=== PATIENT | male | born 1950 | race Caucasian/White ===

== ENCOUNTER → 2020-08-27 11:17 | Outpatient (BNVA) | payer OTHER, SELFPAY | PROVIDERS: Family Provider Family Medicine; PCP Family Medicine; Visit Provider Urology | DX: N39.0 Urinary tract infection, site not specified (principal); R33.9 Retention of urine, unspecified; N40.1 Benign prostatic hyperplasia with lower urinary tract symptoms | CPT/HCPCS: 81003 ==

== ENCOUNTER → 2021-07-15 09:24 | Outpatient (BNVA) | payer OTHER, SELFPAY | PROVIDERS: Family Provider Family Medicine; PCP Family Medicine; Visit Provider Surgery | DX: R22.2 Localized swelling, mass and lump, trunk (principal); Z20.822 Contact with and (suspected) exposure to COVID-19 | CPT/HCPCS: 87635 ==

== ENCOUNTER 2021-07-20 07:34 | Day surgery (SDC) | payer OTHER, SELFPAY ==
[2021-07-19 10:43] VITALS: BMI 27.1
[2021-07-20 07:48] VITALS: BP 154/73; PULSE 59; RESP 16; TEMP 36.3; O2SAT 100
--- NOTE | 2021-07-20 08:05 | ANES.PREANE2 ---
Pre-Anesthetic Assessment Pre-Anesthetic Assessment: Height/Weight: Height 1.83 m Weight 90.718 kg Temp Pulse Resp BP Pulse Ox 97.4 F L 59 L 16 154/73 100 07/20/21 07:48 07/20/21 07:48 07/20/21 07:48 07/20/21 07:48 07/20/21 07:48 Preop Diagnosis: Upper back sebaceous cyst Proposed Procedure: Operation Date: 07/20/21 09:00 Proposed Procedures p EXCISION OF UPPER BACK MASS R22.2(Not Applicable) - Joe Spencer MD Familial anesthetic complications: None Was Beta Nahum taken within 24 hours: Yes Was Clonidine taken within 24 hours: N/A Last intake: Intake Last Liquid Date 07/19/21 Last Liquid Time 21:00 Last Solid Date 07/19/21 Last Solid Time 16:00 Social: Social History: No alcohol and No tobacco Exam: Pre-Anes Outpt Exam: alert, oriented x 3, clear to auscultation bilaterally and regular rate & rhythm Airway: Cervical ROM: WNL MP: 2 Dentition: False CV/HEM: CV/HEM: HTN Metabolic: Metabolic: Hyperlipidemia and Thyroid Anesthetic Plan: ASA status: 2 Anesthesia: MAC Risk of > 500 ml blood loss (7ml/kg in children): No PFSH Anesthesia PFSH: Medical History Acute prostatitis Anemia BPH loc w urin obs/LUTS Hyperthyroidism Pyelonephritis Subcutaneous mass of back Surgical History S/P appendectomy S/P thyroidectomy Family History Mother , 76 Cancer leukemia Father , 84 Parkinson disease Other Subcutaneous mass of back Social History Smoking and tobacco status: former smoker Alcohol intake: never Marital status: Data Anesthesia Cardiac Studies: No Data to Display
[2021-07-20] MEDS: acetaminophen 1,000 MG/100 ML PIGGYBACK 400 MG IV (08:15)
[2021-07-20] MEDS: sodium chloride 0.9% 1,000 ML 30 ML IV (08:16)
--- NOTE | 2021-07-20 08:44 | W.PM.OPSUD ---
Surgery/Procedure H&P Update DATE OF PROCEDURE: July 20, 2021 DATE H&P PERFORMED: 07/05/21 H&P UPDATE INFORMATION: I have reviewed H&P completed within last 30 days, I have examined patient prior to procedure and No changes to prior documentation PREOP DIAGNOSIS: Upper back sebaceous cyst PRIMARY INDICATION FOR PROCEDURE: The same PLANNED PROCEDURE: Operation Date: 07/20/21 09:00 Proposed Procedures p EXCISION OF UPPER BACK MASS R22.2(Not Applicable) - Joe Spencer MD
--- NOTE | 2021-07-20 09:14 | PC.NURSE ---
While doing pre op assessment patient stated that she had eaten a chicken leg and cauliflower. Nurse asked patient if she had been on the 10 day liquid protein diet and she stated that she had not and didnt know that she should have been. Dr. Spencer was notified of patient's weight and that she had not lost any and had not been on the diet. Dr. Spencer came and spoke with patient and educated her on the risks and benefits of continuing with surgery today or rescheduling. Patient notified nurse that they were going to reschedule.
[2021-07-20 09:50] VITALS: BP 131/76; PULSE 52; RESP 16; TEMP 36.5; O2SAT 98
--- NOTE | 2021-07-20 09:54 | PM.OP ---
Operative Report Date of procedure: July 20, 2021 Pre-op Diagnosis: Upper back sebaceous cyst Post-op diagnosis: same Procedure Done: 1-Excision of upper back mass inclusive of multiple sebaceous cysts 2-Elevation of superior and Inferior subcutaneous flaps. Specimens removed/disposition: Upper back mass sutures marked superior Surgeon: Joe Spencer Wild Animal Caretaker: instrument and electrical technician Liz and medical student Leidy Wan Circulating nurse Reshma Anesthesia: MAC (garage hand Monae) Estimated blood loss (mL): 5 Condition: stable Disposition: same day Procedure: After identifying the patient holding area, both back johana was marked before the procedure by myself, patient was then taken to the operative suite, was placed in the left lateral position, IV antibiotics were given per protocol,IV propofol was infused by the anesthesia provider, prep and drape of the upper back region was done under the usual sterile technique. Time-out was done verifying the patient's name/date of /planned procedure and destination after the procedure, all were in agreement. Infiltration of lidocaine 2%. I did an elliptical incision on top of the mass including the puncti. I was able to dissect using sharp dissection and the whole cyst/s was excised from the surrounding tissues, the same maneuver was done to the upper back mass and the specimen was sent for permanent pathology.3x6 cm nd depth of 2.5 cm. Thorough irrigation of the cavity was done and hemostasis,elevation of superior and Inferior flaps. followed by deep dermal closure by 3-0 Vicryl, then 3/0 nylon transverse mattress for skin closure Lidocaine 2% was injected at the site of the incisions, followed by pressure dressing. Patient tolerated the procedure well, count of instruments and sponges were completed at the end of the procedure. And then patient was taken to the recovery area in stable condition. I was present for the whole entire procedure
[2021-07-20 09:55] VITALS: BP 136/68; PULSE 56; RESP 17; O2SAT 97
[2021-07-20 10:00] VITALS: BP 130/56; PULSE 55; RESP 16; TEMP 36.4; O2SAT 98
[2021-07-20 10:05] VITALS: BP 136/60; PULSE 52; RESP 16; TEMP 36.6; O2SAT 95
[2021-07-20 10:25] VITALS: BP 132/76; PULSE 52; RESP 16; O2SAT 99
== END 2021-07-20 10:28 | disposition home or self-care (01) ==
PROVIDERS: PCP Family Medicine; Visit Provider Surgery
PROC: (CPT 11406; principal; 2021-07-20 08:50)
DX: L72.3 Sebaceous cyst (principal); I10 Essential (primary) hypertension; E78.5 Hyperlipidemia, unspecified; N40.1 Benign prostatic hyperplasia with lower urinary tract symptoms; N13.8 Other obstructive and reflux uropathy; E03.9 Hypothyroidism, unspecified; Z87.891 Personal history of nicotine dependence
CPT/HCPCS: 11406; 12032; 88304; J2250; J2405; J3010; J7030

== ENCOUNTER → 2021-08-26 10:12 | Outpatient (BNVA) | payer OTHER, SELFPAY | PROVIDERS: PCP Family Medicine; Visit Provider Urology | DX: N40.1 Benign prostatic hyperplasia with lower urinary tract symptoms (principal) | CPT/HCPCS: 81003 ==

== ENCOUNTER → 2022-07-26 10:18 | Outpatient (BNVA) | payer OTHER, SELFPAY | PROVIDERS: PCP Family Medicine; Visit Provider Nurse Practitioner Family | DX: M17.12 Unilateral primary osteoarthritis, left knee (principal) | CPT/HCPCS: 73562; 73560; 73565 ==

== ENCOUNTER → 2023-11-20 08:36 | Outpatient (BNVA) | payer OTHER, SELFPAY | PROVIDERS: PCP Family Medicine; Visit Provider Specialist | DX: Z01.818 Encounter for other preprocedural examination (principal); M17.12 Unilateral primary osteoarthritis, left knee | CPT/HCPCS: 73560; 73565; 99205 ==

== ENCOUNTER 2023-12-25 10:06 | Outpatient (CLI) | payer OTHER, SELFPAY ==
--- NOTE | 2023-12-25 10:30 | CT_ITS ---
WS: [id number] CT LEFT KNEE, NONCONTRAST JOHN TECHNIQUE: Noncontrast CT of the LEFT knee to include the LEFT hip and ankle. CLINICAL INFORMATION: M17.12 - Unilateral primary osteoarthritis, left knee DLP: [address] scans at [facility] use at least one of these dose optimization techniques: automated e xposure control; mA and/or kV adjustment per patient size (includes targeted exams where dose is matc hed to clinical indication); or iterative reconstruction. FINDINGS: Moderate to advanced tricompartment arthritis LEFT knee. Small suprapatellar effusion. Hypertrophic p atella. Slight lateral subluxation of the patella may be positional. Hypertrophic changes along the j oint line. Vascular calcification. Enlarged prostate measuring 5.6 cm. Recommend correlation PSA. LEF T inguinal hernia containing a nonobstructed loop of bowel likely sigmoid colon. Moderate degenerativ e narrowing both hips. IMPRESSION: Images obtained for preoperative purposes. 1. Enlarged prostate measuring 5.6 cm. Recommend correlation PSA. 2. LEFT inguinal hernia containing a nonobstructed loop of bowel likely sigmoid colon.
== END 2023-12-25 10:07 | disposition home or self-care (01) ==
LOC: RAD 10:06
PROVIDERS: PCP Family Medicine; Visit Provider Specialist
DX: M17.12 Unilateral primary osteoarthritis, left knee (principal); M16.0 Bilateral primary osteoarthritis of hip
CPT/HCPCS: 73700

== ENCOUNTER → 2024-01-10 08:50 | Outpatient (BNVA) | payer OTHER, SELFPAY | PROVIDERS: PCP Family Medicine; Visit Provider Family Medicine | DX: Z01.818 Encounter for other preprocedural examination (principal) | CPT/HCPCS: 80053; 81003; 85025 ==

== ENCOUNTER 2024-01-16 10:55 | Observation (INO) | payer OTHER, SELFPAY ==
[2024-01-16] VITALS (15 sets, daily range): BP systolic 103–180; BP diastolic 62–96; PULSE 60–70; RESP 14–19; TEMP 36.1–36.8; O2SAT 95–100; BMI 26.0
[2024-01-16] MEDS: CELEcoxib 200 mg Capsule 400 MG PO (06:28)
[2024-01-16] MEDS: sodium chloride 0.9% 1,000 ML 30 ML IV (06:28)
[2024-01-16] MEDS: gabapentin 300 mg Capsule PO (06:29)
[2024-01-16] MEDS: acetaminophen 1,000 MG/100 ML PIGGYBACK 400 MG IV ×3 (06:35→18:39)
--- NOTE | 2024-01-16 07:02 | P.HPUD_ITS ---
Surgery/Procedure H&P Update DATE OF PROCEDURE: January 16, 2024 DATE H&P PERFORMED: 01/10/24 H&P UPDATE INFORMATION: I have reviewed H&P completed within last 30 days, I have examined patient prior to procedure, No changes to prior documentation and H&P is in [facility] [place] on date indicated PLANNED PROCEDURE: Operation Date: 01/16/24 07:40 Proposed Procedures p Left Jose Robot Total Knee Arthroplasty(Left) - Mellisa Keita MD Related Problem List Diagnoses (1) Primary osteoarthritis of left knee:
--- NOTE | 2024-01-16 07:27 | ANES.PREANE2 ---
Pre-Anesthetic Assessment Height/Weight: Height 1.83 m Weight 87.09 kg Temp Pulse Resp BP Pulse Ox O2 Del Method 97.0 F L 70 18 171/91 99 Room Air 01/16/24 06:15 01/16/24 06:15 01/16/24 06:15 01/16/24 06:15 01/16/24 06:15 01/16/24 06:15 Operation Date: 01/16/24 07:40 Proposed Procedures p Left Jose Robot Total Knee Arthroplasty(Left) - Mellisa Keita MD Familial anesthetic complications: None Was Beta Nahum taken within 24 hours: N/A Was Clonidine taken within 24 hours: N/A Last intake: Intake Last Liquid Date 01/15/24 Last Liquid Time 23:00 Last Solid Date 01/15/24 Last Solid Time 16:00 Social No alcohol and No tobacco Exam alert, oriented x 3, clear to auscultation bilaterally and regular rate & rhythm Airway Mallampati: Class II Dentition: false CV/HEM Hypertension pacemaker may last year for episodes of bradycardia - not pacer dependent Denies CP, SOB, syncope Neuropsych Seizure (complex partial seizures on keppra with no further episodes) Anesthetic Plan ASA status: 3 Anesthesia: Regional (specify below) Other: spinal + adductor Risk of > 500 ml blood loss (7ml/kg in children): No Other Pertinent Information magnet available Medications/Allergies Home Medications Medication Instructions Recorded Confirmed Last Taken Type levothyroxine 137 mcg capsule 137 mcg PO DAILY 08/27/20 01/15/24 01/16/24 History tamsulosin 0.4 mg capsule 0.4 mg PO DAILY #90 caps 08/26/21 01/15/24 01/15/24 Rx levetiracetam 750 mg tablet 750 mg PO BID 01/10/24 01/15/24 01/16/24 History losartan 25 mg tablet 25 mg PO DAILY 01/10/24 01/15/24 01/15/24 History rizatriptan 10 mg disintegrating 10 mg PO Q2H PRN Headache 01/10/24 01/16/24 01/15/24 History tablet rosuvastatin 20 mg tablet 10 mg PO DAILY 01/10/24 01/15/24 01/15/24 History Allergies Allergy/AdvReac Type Severity Reaction Status Date / Time chlorpheniramine Allergy NA Verified 01/16/24 06:21 [From Ornade] cyclobenzaprine Allergy NA Verified 01/16/24 06:21 [From Flexeril] phenylpropanolamine Allergy NA Verified 01/16/24 06:21 [From Ornade] Sulfa (Sulfonamide Allergy rash Verified 01/16/24 06:21 Antibiotics) Current Medications Generic Name Dose Route Start Last Admin Trade Name Freq PRN Reason Stop Dose Admin Sodium Chloride 1,000 mls @ 30 mls/hr 01/16/24 06:15 01/16/24 06:28 Sodium Chloride 0.9% IV 01/17/24 06:14 30 mls/hr .Q24H EDWARD Administration PFSH Anesthesia Medical History Subcutaneous mass of back BPH loc w urin obs/LUTS Acute prostatitis Hyperthyroidism Anemia Pyelonephritis Surgical History S/P appendectomy S/P thyroidectomy Family History Mother , 76 Cancer leukemia Father , 84 Parkinson disease Other Subcutaneous mass of back Social History Alcohol intake: never Substance/Drug Use: never Marital status: Current occupational status: retired Data Anesthesia Cardiac Studies: No Data to Display
--- NOTE | 2024-01-16 07:29 | ANES.PROC ---
Anesthesia Procedures Procedure/Date: 01/16/24 Nerve Block ^: Nerve Block 1: Main Anesthesia: spinal anesthesia block Time Out Performed: Yes Consent: requested by attending/covering physician, from patient, from other, risks and benefits reviewed and patient agrees to proceed Nerve block location: adductor canal (L) Anesthesia monitors applied: pulse oximetry, EKG, BP cuff and oxygen Nerve block position: supine Anesthetic Used: ropivicaine 0.5% (30 ml) and with decadron (4 mg) Ultrasound used to: recognize landmarks and visualize and ID femerol nerve Nerve Stimulator Used?: No Interscalene/Femoral BLK: 4 stimuplex 21 g needle used for position and inplane approach, visualize local anesthetic spread and no vascular puncture identified Injection: neg aspiration of heme Patient Tolerated Procedure: well Complications: none
[2024-01-16] MEDS: ceFAZolin 2,000 MG in sodium chloride 0.9% (plus) 50 ML 100 MG IV ×2 (07:57→17:11)
[2024-01-16] MEDS: tranexamic acid 1,000 mg/10mL SDV 1000 MG IV (08:33)
[2024-01-16] MEDS: BUPivacaine liposome 13.3 mg/mL SDV 10 mL 266 MG INFILTRATI (09:08)
[2024-01-16] MEDS: BUPivacaine 0.5% INJ 30 mL 20 ML XX (09:08)
[2024-01-16] MEDS: vancomycin 1,000 MG SDV 1000 MG XX (09:09)
[2024-01-16] MEDS: ceFAZolin 1,000 mg SDV 2000 MG IRRIGATION (09:10)
--- NOTE | 2024-01-16 10:49 | P.OP_ITS ---
Operative Report Date of procedure: January 16, 2024 Pre-op diagnosis: Left knee primary osteoarthritis Post-op diagnosis: Left knee primary osteoarthritis Post-op findings: Significant denudement of cartilage and findings consistent with osteoarthritis Procedure done: Left total knee arthroplasty with Jose guidance Implants: The [place] total knee system with a size 6 triathlon beaded cruciate retaining femur left, a triathlon titanium tibial component size 6 beaded, a triathlon X3 tibial bearing CS insert size 6 X 9 mm and a beaded triathlon titanium asymmetric patella size 35 x 10 mm Specimens removed/disposition: Bone, disposed of Pathology: None Surgeon: Mellisa Keita MD Welder/Installer: Sania Rashid, nurse practitioner, who services were essential for positioning, retraction, closure, and completion of the surgical procedure Anesthesia: Spinal (With MAC, ASA 3) Estimated blood loss (mL): 150 Tourniquet time (min): 0 (Not utilized) IV fluids (mL): 800 Urine output (mL): 200 Complications: None Findings: Significant degenerative osteoarthritic change Condition: stable Disposition: PACU Brief History: This 73-year-old gentleman presented to the office today complaining of left knee pain. The patient had cortisone injections prior to his first visit with me. He has pain in both knees, but the left is significantly worse than the right. X-ray findings were consistent with severe degenerative osteoarthritic change bilateral knees. After discussion in the office, the patient wished to proceed with total knee arthroplasty. Risks, benefits, and complications were explained in detail. Procedure: The patient was brought to the operating theater, and after undergoing spinal anesthetic, with supplemental adductor canal block, ASA 2, the left lower extremity was prepped with Dura-Prep and draped in usual fashion following placement of a tourniquet high on the leg. The leg was then draped free.? T ourniquet was not elevated during the case.? A surgical pause was performed, and at the time of the surgical pause, we confirmed the site and side of surgery. Additionally, we confirmed the appropriate and timely administration of preoperative antibiotics, Ancef 2 g.? The availability of equipment was confirmed, and the patient's identity was verbalized as well. Following the surgical pause, an incision was made centering over the patella continuing proximally and distally as necessary to allow access to the knee joint. Dissection continued through skin and soft tissues using a scalpel. Hemos tasis was obtained using electrocautery. The skin incision was followed by a median parapatellar arthrotomy. The leg was extended and the patella was able to be displaced laterally.? Appropriate arrays and markers were placed in appropriate position for use of the Jose.? Preoperative planning had been accomplished and was discussed in detail with the [facility] medical sales representative.? Intraoperative mapping of the femur and tibia was accomplished after the arrays were placed.? Internal markers were also placed.? Once we had accomplished the Jose mapping, we began the appropriate resections for placement of the prosthesis.? The plan was for a cruciate retaining right total knee arthroplasty. Once appropriate mapping had been accomplished retraction was established using manual retraction by surgical technicians and also the Jose leg positioner and retractors.? The knee was evaluated.? There was significant osteoarthritic change as well as a slight varus deformity.? Appropriate bone resection was ac complished using the Jose.? The femur was sized to a size 6.? Following femoral cuts, attention was directed to the tibia.? Osteophytes were removed prior to this portion of the procedure.? We had performed a minimal medial release at the beginning of the procedure to allow for placement of the array.? Proximal tibia was evaluated, and it was felt that appropriate size for the tibia was a size 6.? Tray was noted to fit nicely with good coverage.? Rim fit was accomplished with the size 6. A trial reduction was accomplished after osteophytes have been removed as well as the medial and lateral menisci.? We had removed the anterior cruciate ligament at the beginning of the case and preserved the posterior cruciate ligament.? Trial reduction was accomplished with a size 6 femoral cruciate ramin ining component, a size 6 tibial tray and a size 6 CS tibial bearing insert which was 9 mm.? Secondary to the balancing of the knee, we elected to place the 9 mm insert for the actual component. Alignment was felt to be appropriate as well.? Trial components were removed after the femur had been drilled.? Prior to removal of the tibial tray which had been pinned in position with appropriate rotation as determined by the Jose plan, we broached the tibia.? Subsequently, the 4 drill holes were made for the prosthetic component.? All trial components were removed, and the wound was irrigated.? Plans were made for insertion of the prosthetic components.? Prior to this, the patella was manually prepared.? After resection of the articular surface with the jigging system, it was measured and measured a 35 mm patella.? We resected approximately 10 mm of patella.? Patellar height was restored with the patellar component. Once again, the wound was irrigated.? The Tritanium tibia was impacted into position.? The beaded femur was then impacted into position in a cementless fashion. The CS tibial insert was placed prior to placement of the femoral component. The patella was pressed into position with a patellar clamp.? Exparel was injected about the components deep and superficially.? The knee was then copiously irrigated with betadine and saline and suctioned dry. Attention was then directed to closure. Closure was accomplished with 0 Vicryl in the fascial tissues.? The suture line of 0 Vicryl was supplemented with strata fix, #1, with a running stitch from proximal to distal and a second running stitch from distal to proximal.? This was followed by Surgiflo and vancomycin powder.? Following this, a 2-0 Monocryl was used in the subcutaneous tissues, and the skin was closed with 3-0 Strata fix.? Care was taken to assure an excellent subcutaneous as well as skin closure.? A sterile dressing was then placed consisting of Dermabond Prineo, OpSite, ABD, sterile soft roll, and an Oren wrap including over the foot. The patient was returned the Recovery Room in a satisfactory condition. X-rays were obtained and reviewed there.? The patient will be discharged to the floor for postoperative rehabilitation and pain management. Related Problem List Diagnoses (1) Primary osteoarthritis of left knee:
--- NOTE | 2024-01-16 11:00 | XR_ITS ---
WS: [id number] Exam: XR knee LT 1-2V [id number] Date/Time of Exam: 01/16/2024 11:02 AM Reason For Exam: Status post left total knee arthroplasty Comparison 11/20/2023. Total knee arthroplasty is in excellent position. Postoperative changes in the soft tissues. IMPRESSION: 1. Total knee arthroplasty in excellent position.
--- NOTE | 2024-01-16 11:20 | ANE.PACU2 ---
Inpatient post-anesthesia follow up: Airway intact: Yes Vital signs: Temperature 98.0 F Pulse Rate 66 Respiratory Rate 18 Blood Pressure 131/71 Pulse Oximetry 97 Oxygen Delivery Me thod Room Air Oxygen Flow Rate Fraction of Inspir ed Oxygen Hydration adequate: Yes Nausea and vomiting: No Pain level: 1 Mental status: Baseline
[2024-01-16] MEDS: CELEcoxib 200 mg Capsule PO (11:48)
[2024-01-16] MEDS: chlorhexidine gluconate 0.12% Btl 473 mL 30 ML MUCOUS MEM ×3 (14:38→22:22)
[2024-01-16] MEDS: mupirocin oint 22 gm 1 APPLIC NASAL (17:02)
[2024-01-16] MEDS: calcium carbonate 500 mg Chew Tablet 1000 MG PO (17:03)
[2024-01-16] MEDS: levETIRAcetam 500 mg Tablet 750 MG PO (17:03)
[2024-01-16] MEDS: iron polysaccharide complex 150 mg Capsule PO (17:04)
[2024-01-16] MEDS: sennosides-docusate Tablet 2 TAB PO (17:10)
[2024-01-17] VITALS (7 sets, daily range): BP systolic 119–131; BP diastolic 68–72; PULSE 66–71; RESP 12–18; TEMP 36.3–36.7; O2SAT 97–98; BMI 26.0
[2024-01-17] MEDS: ceFAZolin 2,000 MG in sodium chloride 0.9% (plus) 50 ML 100 MG IV ×2 (00:27→07:42)
[2024-01-17] MEDS: CELEcoxib 200 mg Capsule PO ×2 (00:27→11:05)
[2024-01-17] MEDS: acetaminophen 1,000 MG/100 ML PIGGYBACK 400 MG IV (03:51)
[2024-01-17 05:22] LABS: Basophils % 0.2 %; Eosinophils % 0.4 %; Hematocrit 29.1 % (37-53); Lymphocytes # 1.2 10^3/uL (0.8-4.8); Lymphocytes % 11.5 %; Mean Corpuscular HGB Conc 33.7 g/dL (30-55); Mean Corpuscular Hemoglobin 28.3 pg (27-33); Mean Corpuscular Volume 84.1 fl (82-101); Mean Platelet Volume 9.4 fL (7.4-10.4); Monocytes # 1.1 10^3/uL (0.2-0.9); Monocytes % 10.5 %; Neutrophils # 7.83 10^3/uL (1.8-7.7); Nucleated Red Blood Cells % 0 %; Platelet Count 204 10^3/cmm (157-399); Red Blood Count 3.46 10^6/uL (3.85-5.65); Red Cell Distribution Width 14.2 % (12.1-15.1); White Blood Count 10.17 10^3/uL (3.29-11.43)
[2024-01-17 05:41] LABS: Anion Gap 14.3 (5-19); Blood Urea Nitrogen 10 mg/dL (8-23); Calcium 8.3 mg/dL (8.5-10.5); Carbon Dioxide 21 mmol/L (22-29); Chloride 98 mmol/L (98-107); Creatinine Clr Calc Pharmacy 93.2663; Glucose 98 mg/dL (65-115); Osmolality Calculated 267 mOsm/kg (285-295); Potassium 4.3 mmol/L (3.5-5.1); Sodium 129 mmol/L (136-145)
[2024-01-17] MEDS: oxyCODONE 5 mg IR Tab/Cap PO ×2 (07:41→12:21)
[2024-01-17] MEDS: iron polysaccharide complex 150 mg Capsule PO (07:43)
[2024-01-17] MEDS: calcium carbonate 500 mg Chew Tablet 1000 MG PO (07:43)
[2024-01-17] MEDS: cholecalciferol (vitamin D3) 1,000 unit Tablet 1000 UNIT PO (07:44)
[2024-01-17] MEDS: levothyroxine 137 mcg Tablet PO (07:44)
[2024-01-17] MEDS: sennosides-docusate Tablet 2 TAB PO (07:44)
[2024-01-17] MEDS: losartan 50 mg Tablet 25 MG PO (07:44)
[2024-01-17] MEDS: aspirin 325 mg EC Tablet PO (07:45)
[2024-01-17] MEDS: levETIRAcetam 500 mg Tablet 750 MG PO (07:45)
[2024-01-17] MEDS: atorvastatin 40 mg Tablet PO (07:45)
[2024-01-17] MEDS: multivitamin therapeutic Tablet 1 TAB PO (07:46)
[2024-01-17] MEDS: mupirocin oint 22 gm 1 APPLIC NASAL (07:46)
[2024-01-17] MEDS: chlorhexidine gluconate 0.12% Btl 473 mL 30 ML MUCOUS MEM ×2 (07:46→12:21)
[2024-01-17] MEDS: acetaminophen 500 mg Tablet 1000 MG PO (11:05)
--- NOTE | 2024-01-17 13:09 | P.DS_ITS ---
Discharge Providers Date of Admission: 01/16/24 10:55 Date of Discharge: January 17, 2024 Attending Provider at Admission: Mellisa Keita MD Attending Provider at Discharge: Mellisa Keita MD Primary Care Provider: Mango [place] Diagnoses at Discharge Discharge Diagnosis (1) Primary osteoarthritis of left knee: Status: Acute (2) Status post total left knee replacement not using cement: Status: Acute Permanent problem details: Date of procedure: January 16, 2024 Diagnosis: Left knee primary osteoarthritis Procedure done: Left total knee arthroplasty with Jose guidance Implants: The Cherry total knee system with a size 6 triathlon beaded cruciate retaining femur left, a triathlon titanium tibial component size 6 beaded, a triathlon X3 tibial bearing CS insert size 6 X 9 mm and a beaded triathlon titanium asymmetric patella size 35 x 10 mm Reason for Visit Reason for Visit: M17.12 Brief History: This 73-year-old gentleman presented to the office today complaining of left knee pain. The patient had cortisone injections prior to his first visit with me. He has pain in both knees, but the left is significantly worse than the right. X-ray findings were consistent with severe degenerative osteoarthritic change bilateral knees. After discussion in the office, the patient wished to proceed with total knee arthroplasty. Risks, benefits, and complications were explained in detail. Hospital Course Hospital Course Patient was admitted under observation status following same-day admission for left total knee arthroplasty. The patient tolerated the procedure well. He worked with physical therapy the following day, and was doing very well. He was independent with physical therapy. Plans were made for his discharge to home, and the patient and family were in agreement with that. Therefore, he was discharged home to follow-up with me in the office as scheduled. Physical Exam Const: COMMON NORMALS: no acute distress, average body habitus, patient oriented x3 and alert GENERAL APPEARANCE: cooperative and comfortable ORIENTATION/CONSCIOUSNESS: Yes awake HENMT: COMMON NORMALS: normocephalic and atraumatic HEAD & SCALP: normocephalic and atraumatic Eye: GENERAL EYE: appearance normal, both eyes and all related structures Chest: COMMONS NORMALS: normal inspection of the chest Resp: COMMON NORMALS: normal respiratory effort EFFORT & INSPECTION: Yes able to speak in complete sentences and Yes symmetric chest movement Extremity: LEFT LOWER EXTREMITY: Yes knee joint (Large outer dressing removed. Minimal ecchymosis.) Left knee: Yes inspection (No significant swelling.), Yes palpation (Minimal tenderness), Yes ROM (Able to straight leg raise) and Yes neurovascular exam (Intact distally with no evidence of DVT) Neuro: COMMON NORMALS: patient oriented x3 SENSORIUM/ORIENTATION: Yes alert Psych: COMMON NORMALS: mental status grossly normal APPEARANCE: Yes grossly normal ATTITUDE: Yes calm and Yes engaged ATTENTION/CONCENTRATION: Yes attention grossly intact Skin: COMMON NORMALS: no rashes or lesions noted GENERAL SKIN EXAM: no rashes or lesions noted Urinary Catheter Management: Pink: Cath Placed During This Visit: yes, but has since been removed by the nurse Reason for Continuing Indwelling Catheter: Decision to DC Catheter Urinary Catheter Date of Insertion: 01/16/24 Urinary Catheter Time of Insertion: 08:20 Date Urinary Catheter Removed: 01/17/24 Time Urinary Catheter Discontinued: 05:55 Discharge Data Studies Completed and Pending Completed Studies During Hospitalization Category Date Time Status XR knee LT 1-2V [id number] Routine Exams 01/16/24 11:00 Completed Laboratory Results WBC 10.17 10^3/uL (3.29-11.43) 01/17/24 05:14 RBC 3.46 10^6/uL (3.85-5.65) L 01/17/24 05:14 Hgb 9.80 g/dL (11.27-16.99) L 01/17/24 05:14 Hct 29.1 % (37-53) L 01/17/24 05:14 MCV 84.1 fl (82-101) 01/17/24 05:14 MCH 28.3 pg (27-33) 01/17/24 05:14 MCHC 33.7 g/dL (30-55) 01/17/24 05:14 RDW 14.2 % (12.1-15.1) 01/17/24 05:14 Plt Count 204 10^3/cmm (157-399) 01/17/24 05:14 MPV 9.4 fL (7.4-10.4) 01/17/24 05:14 Neut % (Auto) 77.0 % 01/17/24 05:14 Lymph % (Auto) 11.5 % 01/17/24 05:14 [place] % (Auto) 10.5 % 01/17/24 05:14 Eos % (Auto) 0.4 % 01/17/24 05:14 Baso % (Auto) 0.2 % 01/17/24 05:14 Neut # (Auto) 7.83 10^3/uL (1.8-7.7) H 01/17/24 05:14 Lymph # (Auto) 1.2 10^3/uL (0.8-4.8) 01/17/24 05:14 [place] # (Auto) 1.1 10^3/uL (0.2-0.9) H 01/17/24 05:14 Eos # (Auto) 0.0 10^3/uL (0.0-0.8) 01/17/24 05:14 Baso # (Auto) 0.0 10^3/uL (0.0-0.1) 01/17/24 05:14 Nucleated RBC % (auto) 0 % 01/17/24 05:14 Nucleated RBCs # 0.0 /100WBC 01/17/24 05:14 Sodium 129 mmol/L (136-145) L 01/17/24 05:14 Potassium 4.3 mmol/L (3.5-5.1) 01/17/24 05:14 Chloride 98 mmol/L (98-107) 01/17/24 05:14 Carbon Dioxide 21 mmol/L (22-29) L 01/17/24 05:14 Anion Gap 14.3 (5-19) 01/17/24 05:14 BUN 10 mg/dL (8-23) 01/17/24 05:14 Creatinine 0.8 mg/dL (0.7-1.2) 01/17/24 05:14 GFR Calculation Not Reportable 01/17/24 05:14 Glucose 98 mg/dL (65-115) 01/17/24 05:14 Calculated Osmolality 267 mOsm/kg (285-295) L 01/17/24 05:14 Calcium 8.3 mg/dL (8.5-10.5) L 01/17/24 05:14 Vitals Last Vital Signs Temp 97.4 F L 01/17/24 11:23 Pulse 69 01/17/24 11:23 Resp 18 01/17/24 12:21 BP 126/68 03/27/24 11:23 Pulse Ox 97 01/17/24 11:23 O2 Del Method Room Air 01/17/24 11:23 Discharge Plan Discharge Patient Disposition: Home Health Service Condition: Stable Prescriptions: New acetaminophen 500 mg Tablet 1,000 mg PO Q8H 15 Days Qty: 90 0RF aspirin 325 mg Tablet,Delayed Release (Dr/Ec) 325 mg PO DAILY 30 Days Qty: 0 0RF oxycodone 5 mg Tablet 5 - 10 mg PO Q4H PRN (Reason: Moderate Pain) 7 Days Qty: 30 0RF meloxicam 15 mg tablet 15 mg PO DAILY Qty: 30 0RF Continued tamsulosin 0.4 mg capsule 0.4 mg PO DAILY Qty: 90 3RF levothyroxine 137 mcg capsule 137 mcg PO DAILY rosuvastatin 20 mg tablet 10 mg PO DAILY losartan 25 mg tablet 25 mg PO DAILY rizatriptan 10 mg tablet,disintegrating 10 mg PO Q2H PRN (Reason: Headache) levetiracetam 750 mg tablet 750 mg PO BID Discharge Orders: Discharge Order (Routine); Ordered 01/17/24 Ordered By: Mellisa Keita Referrals: [facility] [Other] Mellisa Keita MD [Physician] - 01/29/24 8:45 am Discharge Diet: Advance as tolerated and Usual diet Discharge Activity: Limit activity as instructed, Use walker/crutches as instructed and As per PT/OT instructions Patient Instructions: Oxycodone, Rapid Release (By mouth), Meloxicam (By mouth), Joint Replacement Surgery (GEN), Joint Replacement Stoplight, Opioid Safety Activity Restrictions/Additional Instructions: Ice and elevation to left lower extremity. You may weight-bear as tolerated. Gait training, ambulation, and strengthening per physical therapy. You may shower but do not immerse your leg in water. Discharge Attestations Time Spent in Discharge Care*: greater than 30 min Specific Discharge Activities: educating patient, documenting/other paperwork and evaluating patient/reviewing data Quality Metrics Clinical Quality Measures [ No reported AMI, CVA or VTE this stay] Coding Level of Care Code Acute Code for Chg Fwd Diagnoses Primary osteoarthritis of left knee M17.12 Status post total left knee replacement not using cement Z96.652
--- NOTE | 2024-01-17 13:55 | PC.NURSE ---
Discharge instructions provided to pt and . No questions or concerns at this time. Meds to beds have delivered new prescriptions. Extra ice packs given to pt. Pt to private vehicle via wheelchair with all belongings.
== END 2024-01-17 14:02 | disposition home health service (06) ==
LOC: MEDSURG 10:57
PROVIDERS: Admitting Provider Specialist; PCP Family Medicine; Visit Provider Specialist
PROC: 8E0Y0CZ Robotic Assisted Procedure of Lower Extremity, Open Approach (ICD-10-PCS; CPT 27447; principal; 2024-01-16 07:40)
DX: M17.12 Unilateral primary osteoarthritis, left knee (principal); N40.1 Benign prostatic hyperplasia with lower urinary tract symptoms; N13.8 Other obstructive and reflux uropathy; E03.9 Hypothyroidism, unspecified
CPT/HCPCS: 20985; 27447; 36415; 51702; 73560; 80048; 85025; 97110; 97116; 97162; 97165; 97530; C1776; C9290; G0378; J0131; J0690; J1100; J2704; J2795; J3010; J3370; J3490; J7030

== ENCOUNTER → 2024-01-29 08:27 | Outpatient (BNVA) | payer OTHER, SELFPAY | PROVIDERS: PCP Family Medicine; Visit Provider Specialist | DX: Z96.652 Presence of left artificial knee joint (principal) | CPT/HCPCS: 73560; 73565; 99024 ==

== ENCOUNTER 2024-02-15 06:00 | Outpatient (RCR) | payer OTHER, SELFPAY | END 2024-02-20 23:59 | disposition home or self-care (01) | LOC: WPT 06:00 | PROVIDERS: PCP Emergency Medicine Emergency Medical Services; Visit Provider Emergency Medicine Emergency Medical Services | DX: M25.569 Pain in unspecified knee (principal) | CPT/HCPCS: 97110; 97116; 97161 ==

== ENCOUNTER 2024-02-21 06:00 | Outpatient (RCR) | payer OTHER, SELFPAY | END 2024-03-22 23:59 | disposition home or self-care (01) | LOC: WPT 06:00 | PROVIDERS: PCP Emergency Medicine Emergency Medical Services; Visit Provider Emergency Medicine Emergency Medical Services | DX: M25.569 Pain in unspecified knee (principal) | CPT/HCPCS: 97110; 97112; 97530 ==

== ENCOUNTER 2024-03-23 06:00 | Outpatient (RCR) | payer OTHER, SELFPAY | END 2024-04-21 23:59 | disposition home or self-care (01) | LOC: WPT 06:00 | PROVIDERS: PCP Emergency Medicine Emergency Medical Services; Visit Provider Emergency Medicine Emergency Medical Services | DX: M25.569 Pain in unspecified knee (principal) | CPT/HCPCS: 97110; 97112; 97116; 97530 ==

== ENCOUNTER → 2024-06-10 09:33 | Outpatient (BNVA) | payer OTHER, SELFPAY | PROVIDERS: PCP Emergency Medicine Emergency Medical Services; Visit Provider Specialist | DX: Z96.652 Presence of left artificial knee joint (principal) | CPT/HCPCS: 73560; 73565; 99024; 99203; 99213 ==

== ENCOUNTER → 2025-01-15 11:02 | Outpatient (BNVA) | payer OTHER, SELFPAY | PROVIDERS: PCP Emergency Medicine Emergency Medical Services; Visit Provider Specialist | DX: Z96.652 Presence of left artificial knee joint (principal) | CPT/HCPCS: 73560; 73565; 99213 ==